=== PATIENT | female | born 1985 | race Caucasian/White ===

== ENCOUNTER 2019-02-14 18:05 | Emergency (ER) | payer OTHER ==
[2019-02-14 19:09] VITALS: BP 123/72
--- NOTE | 2019-02-14 21:19 | UC ---
Back Pain HPI - HPI Summary HPI Summary: 33 year old female with PMH + for neck pain in past, underwent PT without an official diagnosis presents with neck pain, worse on Left side. Patient states was sleeping/ resting with head on many pillows, started neck pain which has since increased. STarted tuesday. Denies fever, chills, feeling ill. NO lightheadedness, dizziness. no numbness, tingling. Occassionally with turning head will have radiation anteriorly, towards armpit which is fleeting in nature. Denies chest pain. Took Motrin 400mg with minimal effect, icy hot which did initially work well but now has no benefit. no trauma, no prior trauma/ injuries. presents with SO. - History of Current Complaint Chief Complaint: UCUpperExtremity Stated Complaint: NECK PAIN Time Seen by Provider: 02/14/19 19:22 Hx Obtained From: Patient Hx Last Menstrual Period: 2-3 weeks Onset/Duration: Sudden Onset, Lasting Days Timing: Constant Severity Initially: Mild Severity Currently: Moderate Pain Intensity: 7 Pain Scale Used: 0-10 Numeric Back Pain: Is Discrete @ - Left neck Character: Dull, Aching, Throbbing, Spasmodic, Stiffness Aggravating Factor(s): Movement Alleviating Factor(s): Rest Associated Signs And Symptoms: Negative: Swelling, Redness, Bruising, Fever, Weakness, Numbness, Tingling, Abdominal Pain, Bladder Incontinence, Bowel Incontinence, Weight Loss Related History: Similar Episode Dx As - neck pain in past, tx'd with PT - Allergies/Home Medications Allergies/Adverse Reactions: Allergies Allergy/AdvReac Type Severity Reaction Status Date / Time No Known Allergies Allergy Verified 02/14/19 19:09 PMH/Surg Hx/FS Hx/Imm Hx Previously Healthy: Yes - Surgical History Surgical History: Yes Surgery Procedure, Year, and Place: tonsills and adnoids - Family History Known Family History: Positive: Non-Contributory - Social History Occupation: Employed Full-time Alcohol Use: None Substance Use Type: None Smoking Status (MU): Former Smoker Type: Cigarettes Review of Systems All Other Systems Reviewed And Are Negative: Yes Constitutional: Negative: Fever, Chills, Fatigue Eyes: Positive: Negative ENT: Positive: Negative Respiratory: Positive: Negative Musculoskeletal: Positive: Arthralgia, Decreased ROM, Myalgia Is Patient Immunocompromised?: No Physical Exam Triage Information Reviewed: Yes Appearance: Well-Appearing, No Pain Distress, Well-Nourished Vital Signs: Initial Vital Signs Temp 99.2 F 02/14/19 19:00 Pulse 76 02/14/19 19:00 Resp 16 02/14/19 19:00 BP 123/72 02/14/19 19:00 Pulse Ox 99 02/14/19 19:00 Vital Signs Reviewed: Yes Eyes: Positive: Conjunctiva Clear ENT: Positive: Hearing grossly normal, Pharynx normal, Uvula midline. Negative : Pharyngeal erythema, Tonsillar swelling, Tonsillar exudate, Sinus tenderness Neck: Positive: Supple, No Lymphadenopathy, Tenderness @ - TTP over SCM, paraspinal muscles on L cervical region, non-tender over cervical/ thoracic spine. Decreased ROM due to pain. + scapular winging on L, likely due to holding position due to pain. EMOI. Respiratory: Positive: Chest non-tender, Lungs clear, Normal breath sounds, No respiratory distress, No accessory muscle use. Negative: Respiratory distress, Crackles, Rhonchi, Stridor, Wheezing Cardiovascular: Positive: RRR, No Murmur, Pulses Normal, Brisk Capillary Refill Abdomen Description: Negative: CVA Tenderness (R), CVA Tenderness (L) Neurological Exam: Normal Psychological Exam: Normal Skin Exam: Normal Back Pain Course/Dx - Course Course Of Treatment: Torticollis: - Valium to help sleep and muscle relaxer - Medrol dose pack/ steroids to help decrease inflammation/ pain - GO to ER with worsening symptoms, chest pain, shortness of breath, fever - Do not take motrin while taking steroids. - May stop steroids if side effects too severe. - Differential Dx/Diagnosis Differential Diagnosis/HQI/PQRI: Fracture, Strain, Sprain Provider Diagnosis: Torticollis, acute Discharge ED - Sign-Out/Discharge Documenting (check all that apply): Patient Departure All imaging exams completed and their final reports reviewed: No Studies - Discharge Plan Condition: Good Disposition: HOME Prescriptions: Diazepam TAB(*) [Valium TAB(*)] 5 mg PO BEDTIME PRN #2 tab MDD 1 PRN Reason: muscle spasm methylPREDNISolone [Medrol] 4 mg PO .SEE KEITH INSTRUCTION #1 [id number] Patient Education Materials: Spasmodic Torticollis (ED) Referrals: Mel Be DO [Primary Care Provider] - Additional Instructions: - Valium to help sleep and muscle relaxer - Medrol dose pack/ steroids to help decrease inflammation/ pain - GO to ER with worsening symptoms, chest pain, shortness of breath, fever - Do not take motrin while taking steroids. - May stop steroids if side effects too severe. - Billing Disposition and Condition Condition: GOOD Disposition: Home
== END 2019-02-14 20:02 | disposition home or self-care (01) ==
LOC: UCEAST 18:05 → EDSEX 18:05 → UCEAST 20:02
DX: M43.6 Torticollis (principal); M25.50 Pain in unspecified joint; M54.2 Cervicalgia; Z87.891 Personal history of nicotine dependence
CPT/HCPCS: 99202; G0463